=== PATIENT | female | born 1980 | race Caucasian/White ===

== ENCOUNTER 2016-09-29 11:48 | Emergency (ER) | payer SELFPAY ==
[~2016-09-29] VITALS: Ht 170.2 cm; Wt 90.0 kg
[2016-09-29 11:51] VITALS: BP 150/82
[2016-09-29] MEDS ORDERED: HYDROcodone/APAP 10/325 MG TABLET PO ONE (12:30)
[2016-09-29] MEDS ORDERED: HYDROcodone/APAP 10/325 MG TABLET ONE (12:56)
== END 2016-09-29 13:29 | disposition home or self-care (01) ==
LOC: ED 13:10
DX: G89.11 Acute pain due to trauma (principal); F11.23 Opioid dependence with withdrawal
CPT/HCPCS: 72220; 99284

== ENCOUNTER 2019-03-04 17:09 | Outpatient (CLI) | payer MEDICAID ==
[~2019-03-04] VITALS: Ht 170.2 cm; Wt 72.7 kg
[~2019-03-04 17:09] MED LIST: ALPR1TAB2 PO; METHADONE
[2019-03-04 17:44] VITALS: BP 154/97
[2019-03-04 17:58] LABS: AMPHETAMINE SCREEN, URINE Negative (Negative); BARBITURATE SCREEN, URINE Negative (Negative); BENZODIAZEPINE SCREEN, URINE Negative (Negative); CANNABINOID SCREEN, URINE Positive (Negative); COCAINE SCREEN, URINE Negative (Negative); METHADONE SCREEN, URINE Negative (Negative); OPIATE SCREEN, URINE Negative (Negative)
[2019-03-04 18:03] LABS: MICROSCOPIC INDICATED
[2019-03-04 18:25] LABS: ALANINE AMINOTRANSFERASE 20 U/L (12-78); ALBUMIN 2.4 g/dL (3.4-5.0); ANION GAP 6 mmol/L (5-15); CALCIUM 9.1 mg/dL (8.5-10.1); CHLORIDE 109 mmol/L (98-107); CREATININE 0.72 mg/dL (0.55-1.02)
[2019-03-04 18:27] LABS: ALKALINE PHOSPHATASE 151 U/L (45-117); BILIRUBIN,TOTAL 0.2 mg/dL (0.2-1.0); TOTAL PROTEIN 6.4 g/dL (6.4-8.2)
[2019-03-04 18:49] LABS: BASOPHILS # (AUTO) 0.02 x10^3/uL (0-0.1); BASOPHILS % (AUTO) 0 % (0-1); EOSINOPHILS # (AUTO) 0.17 x10^3/uL (0-0.4); EOSINOPHILS % (AUTO) 1 % (1-7); LYMPHOCYTES # (AUTO) 2.27 x10^3/uL (1-3.4); LYMPHOCYTES % (AUTO) 19 % (22-44); MD NO; MEAN CORPUSCULAR HEMOGLOBIN 28.8 pg (27.0-34.8); MEAN CORPUSCULAR HGB CONC 32.9 g/dL (32.4-35.8); MEAN CORPUSCULAR VOLUME 87.4 fL (80-100); MEAN PLATELET VOLUME 9.5 fL (7.4-10.4); MONOCYTES # (AUTO) 0.53 x10^3/uL (0.2-0.8); MONOCYTES % (AUTO) 5 % (2-9); NEUTROPHILS # (AUTO) 8.76 x10^3/uL (1.8-6.8); NEUTROPHILS % (AUTO) 75 % (42-75); PLATELET COUNT 224 x10^3/uL (130-400); RED BLOOD COUNT 4.07 x10^6/uL (3.82-5.3)
== END 2019-03-04 20:00 | disposition home or self-care (01) ==
LOC: LDOP 17:09
PROVIDERS: ATTEND Obstetrics & Gynecology
DX: O26.893 Other specified pregnancy related conditions, third trimester (principal); Z3A.33 33 weeks gestation of pregnancy
CPT/HCPCS: 36415; 59025; 76805; 80053; 80307; 81001; 84550; 85025; 86592; 86762; 86803; 86850; 86900; 87086; 87340; 87389; 87806; 99201; G0463; G0475

== ENCOUNTER 2019-03-10 20:02 | Inpatient (IN) | payer MEDICAID ==
[~2019-03-10] VITALS: Ht 170.2 cm; Wt 87.5 kg
[2019-03-10 20:53] LABS: MICROSCOPIC INDICATED
[2019-03-10 21:02] LABS: AMPHETAMINE SCREEN, URINE Positive (Negative); BARBITURATE SCREEN, URINE Negative (Negative); BENZODIAZEPINE SCREEN, URINE Negative (Negative); CANNABINOID SCREEN, URINE Positive (Negative); COCAINE SCREEN, URINE Negative (Negative); METHADONE SCREEN, URINE Negative (Negative); OPIATE SCREEN, URINE Negative (Negative)
[2019-03-10] MEDS ORDERED: BETAMETHASONE 6 MG/ML, 5ML IM ONE ×2 (21:20→21:30)
[2019-03-11 07:35] VITALS: BP 135/81
[2019-03-11] MEDS ORDERED: ACETAMINOPHEN 325 MG TABLET ONE (07:43)
[2019-03-11] MEDS: ACETAMINOPHEN 325 MG TABLET PO PRN (07:46)
[2019-03-11] MEDS ORDERED: MAGNESIUM SULFATE PMX 4GM/100M 100 ML ONE (08:02)
[2019-03-11 19:41] VITALS: BP 142/81
[2019-03-11] MEDS ORDERED: BETAMETHASONE 6 MG/ML, 5ML IM ONE (21:30)
[2019-03-12] MEDS ORDERED: ACETAMINOPHEN 325 MG TABLET ONE (13:51)
[2019-03-12] MEDS ORDERED: BETAMETHASONE 6 MG/ML, 5ML IM ONE (14:00)
[2019-03-12] MEDS: ACETAMINOPHEN 325 MG TABLET PO PRN (14:04)
[2019-03-12] MEDS ORDERED: PREN1TAB10 PO (14:23)
[2019-03-12 14:52] LABS: AMPHETAMINE SCREEN, URINE Positive (Negative); BARBITURATE SCREEN, URINE Negative (Negative); BENZODIAZEPINE SCREEN, URINE Negative (Negative); CANNABINOID SCREEN, URINE Negative (Negative); COCAINE SCREEN, URINE Negative (Negative); METHADONE SCREEN, URINE Negative (Negative); OPIATE SCREEN, URINE Negative (Negative)
== END 2019-03-12 14:30 | disposition home or self-care (01) | DRG 833 ==
LOC: LDOP 20:02 → LDIP 21:33
PROVIDERS: ADMIT Obstetrics & Gynecology; ATTEND Obstetrics & Gynecology
DX: O41.03X0 Oligohydramnios, third trimester, not applicable or unspecified (principal); Z3A.34 34 weeks gestation of pregnancy; Z88.6 Allergy status to analgesic agent; M79.7 Fibromyalgia; O99.343 Other mental disorders complicating pregnancy, third trimester; F32.9 Major depressive disorder, single episode, unspecified; Z59.0 Homelessness
CPT/HCPCS: 76815; 80307; 81001; 84112; 87081; 87086; G0378; J0702

== ENCOUNTER 2019-03-16 00:10 | Inpatient (IN) | payer MEDICAID ==
[~2019-03-16] VITALS: Ht 165.1 cm; Wt 86.0 kg
[~2019-03-16 00:10] MED LIST changes: +PREN1TAB10 PO
[2019-03-16] MEDS ORDERED: LACTATED RINGERS 1,000 ML IVBOLUS ONE (00:30)
[2019-03-16] MEDS ORDERED: OXYTOCIN 30U/ 0.9% NaCL 500ML 500 ML ONE (01:34)
[2019-03-16] MEDS ORDERED: NEWBORN KIT ONE (01:34)
[2019-03-16] MEDS ORDERED: D5%-LACTATED RINGERS 1,000 ML IV SCH (01:35)
[2019-03-16] MEDS ORDERED: LACTATED RINGERS 1,000 ML IV SCH ×2 (01:35→02:19)
[2019-03-16] MEDS ORDERED: OXYTOCIN 30U/ 0.9% NaCL 500ML 500 ML IV ONE (01:35)
[2019-03-16] MEDS ORDERED: FENTANYL PF 100 MCG/2ML ONE ×2 (01:35→02:47)
[2019-03-16] MEDS: FENTANYL PF 100 MCG/2ML IVPush PRN ×2 (01:44→02:50)
[2019-03-16] MEDS ORDERED: FENTANYL/BUPIV./NS/PF 250 ML EPIDCONT SCH ×2 (01:46→02:19)
[2019-03-16 01:49] LABS: MICROSCOPIC MANUAL
[2019-03-16 01:56] LABS: MEAN CORPUSCULAR HEMOGLOBIN 28.6 pg (27.0-34.8); MEAN CORPUSCULAR HGB CONC 32.9 g/dL (32.4-35.8); MEAN CORPUSCULAR VOLUME 86.9 fL (80-100); MEAN PLATELET VOLUME 9.3 fL (7.4-10.4); PLATELET COUNT 228 x10^3/uL (130-400); RED BLOOD COUNT 4.35 x10^6/uL (3.82-5.3); RED CELL DISTRIBUTION WIDTH 12.4 % (9.6-15.2)
[2019-03-16] MEDS ORDERED: FENTANYL PF 100 MCG/2ML IV PRN (02:00)
[2019-03-16] MEDS ORDERED: PENICILLIN GK 5,000,000 UNITS in DEXTROSE 5% 100 ML IVPB ONE (02:00)
[2019-03-16] MEDS ORDERED: TERBUTALINE 1 MG/ML, 1ML SQ PRN (02:00)
[2019-03-16] MEDS ORDERED: PENICILLIN GK 2,500,000 UNITS in DEXTROSE 5% 100 ML IVPB SCH (02:00)
[2019-03-16] MEDS ORDERED: TERBUTALINE 1 MG/ML, 1ML IVPush PRN (02:00)
[2019-03-16] MEDS ORDERED: FENTANYL/BUPIV./NS/PF 250 ML EPIDCONT ONE (02:07)
[2019-03-16] MEDS ORDERED: NALOXONE 0.4 MG/ML, 1ML IVPush PRN (02:30)
[2019-03-16] MEDS ORDERED: EPHEDRINE 50 MG/ML, 1ML IVPush PRN (02:30)
[2019-03-16] MEDS ORDERED: LACTATED RINGERS 1,000 ML IVBOLUS PRN (02:30)
[2019-03-16 02:46] LABS: BASOPHILS # (AUTO) 0.03 x10^3/uL (0-0.1); BASOPHILS % (AUTO) 0 % (0-1); EOSINOPHILS # (AUTO) 0.06 x10^3/uL (0-0.4); EOSINOPHILS % (AUTO) 0 % (1-7); LYMPHOCYTES # (AUTO) 2.78 x10^3/uL (1-3.4); LYMPHOCYTES % (AUTO) 13 % (22-44); MD SCAN; MONOCYTES # (AUTO) 0.74 x10^3/uL (0.2-0.8); MONOCYTES % (AUTO) 4 % (2-9); NEUTROPHILS # (AUTO) 17.24 x10^3/uL (1.8-6.8); NEUTROPHILS % (AUTO) 83 % (42-75)
[2019-03-16] MEDS ORDERED: IBUPROFEN 600 MG TABLET ONE (03:16)
[2019-03-16] MEDS: OXYTOCIN 30U/ 0.9% NaCL 500ML 500 ML IV SCH ×3 (03:22→23:22)
[2019-03-16] MEDS ORDERED: ACETAMINOPHEN 325 MG TABLET PO PRN (03:30)
[2019-03-16] MEDS ORDERED: MISOPROSTOL 200 MCG TABLET PO PRN (03:30)
[2019-03-16] MEDS ORDERED: ONDANSETRON 2MG/ML, 2ML IV PRN (03:30)
[2019-03-16] MEDS ORDERED: SIMETHICONE 80 MG CHEW TAB PO PRN (03:30)
[2019-03-16] MEDS ORDERED: MAGNESIUM HYDROXIDE 8%, 30ML UDC PO PRN (03:30)
[2019-03-16] MEDS: IBUPROFEN 600 MG TABLET PO PRN ×3 (03:30→17:07)
[2019-03-16] MEDS ORDERED: OXYcodone/APAP 5/325MG TABLET PO PRN (03:30)
[2019-03-16 03:56] LABS: AMPHETAMINE SCREEN, URINE Positive (Negative); BARBITURATE SCREEN, URINE Negative (Negative); BENZODIAZEPINE SCREEN, URINE Negative (Negative); CANNABINOID SCREEN, URINE Positive (Negative); COCAINE SCREEN, URINE Negative (Negative); METHADONE SCREEN, URINE Negative (Negative); OPIATE SCREEN, URINE Negative (Negative)
[2019-03-16 05:30] VITALS: BP 148/88
[2019-03-16 07:05] VITALS: BP 141/84
[2019-03-16] MEDS: DOCUSATE 100 MG CAPSULE PO PRN (09:13)
[2019-03-16] MEDS: PRENATAL VIT/IRON/FA 1 EACH TABLET PO SCH (09:13)
[2019-03-16 11:04] LABS: MEAN CORPUSCULAR HEMOGLOBIN 28.3 pg (27.0-34.8); MEAN CORPUSCULAR HGB CONC 32.8 g/dL (32.4-35.8); MEAN CORPUSCULAR VOLUME 86.3 fL (80-100); MEAN PLATELET VOLUME 8.9 fL (7.4-10.4); PLATELET COUNT 224 x10^3/uL (130-400); RED CELL DISTRIBUTION WIDTH 12.7 % (9.6-15.2)
[2019-03-16 11:20] LABS: BASOPHILS # (AUTO) 0.12 x10^3/uL (0-0.1); BASOPHILS % (AUTO) 1 % (0-1); EOSINOPHILS % (AUTO) 0 % (1-7); LYMPHOCYTES # (AUTO) 2.46 x10^3/uL (1-3.4); LYMPHOCYTES % (AUTO) 11 % (22-44); MD SCAN; MONOCYTES # (AUTO) 1.05 x10^3/uL (0.2-0.8); MONOCYTES % (AUTO) 5 % (2-9); NEUTROPHILS # (AUTO) 18.49 x10^3/uL (1.8-6.8); NEUTROPHILS % (AUTO) 83 % (42-75)
[2019-03-16 12:25] VITALS: BP 139/92
[2019-03-16 16:30] VITALS: BP 143/94
[2019-03-16 20:00] VITALS: BP 130/70
[2019-03-17 00:15] VITALS: BP 133/78
[2019-03-17] MEDS: DOCUSATE 100 MG CAPSULE PO PRN ×2 (04:32→21:21)
[2019-03-17] MEDS: IBUPROFEN 600 MG TABLET PO PRN ×3 (04:32→21:21)
[2019-03-17 08:20] VITALS: BP 123/81
[2019-03-17] MEDS: PRENATAL VIT/IRON/FA 1 EACH TABLET PO SCH (09:00)
[2019-03-17] MEDS: OXYTOCIN 30U/ 0.9% NaCL 500ML 500 ML IV SCH ×2 (09:22→19:22)
[2019-03-17] MEDS: OXYcodone/APAP 5/325MG TABLET PO PRN ×2 (13:52→21:22)
[2019-03-17] MEDS: NICOTINE 7 MG/24 HR PATCH.TD24 TD SCH (15:10)
[2019-03-17 20:30] VITALS: BP 141/83
[2019-03-18] MEDS: OXYTOCIN 30U/ 0.9% NaCL 500ML 500 ML IV SCH ×2 (05:22→15:22)
[2019-03-18] MEDS: IBUPROFEN 600 MG TABLET PO PRN (06:35)
[2019-03-18] MEDS: OXYcodone/APAP 5/325MG TABLET PO PRN ×2 (08:35→15:22)
[2019-03-18 08:45] VITALS: BP 132/72
[2019-03-18] MEDS: PRENATAL VIT/IRON/FA 1 EACH TABLET PO SCH (09:00)
[2019-03-18] MEDS ORDERED: IBUP-1223 PO (11:56)
[2019-03-18] MEDS ORDERED: DIPH,PERTUSS(ACELL),TET VAC/PF NC IM-VACC ONE ×2 (12:53→13:00)
[2019-03-18] MEDS ORDERED: MEASLES,MUMPS&RUBELLA VACC/PF 0.5 ML SQ-VACC ONE ×2 (12:54→13:00)
[2019-03-18] MEDS: NICOTINE 7 MG/24 HR PATCH.TD24 TD SCH (17:00)
== END 2019-03-18 17:00 | disposition home or self-care (01) | DRG 806 ==
LOC: LDOP 00:10 → LDIP 01:36 → 2NW 04:44
PROVIDERS: ADMIT Obstetrics & Gynecology; ATTEND Obstetrics & Gynecology
PROC: 10E0XZZ Delivery of Products of Conception, External Approach (ICD-10-PCS; principal; 2019-03-16)
DX: O60.14X0 Preterm labor third trimester with preterm delivery third trimester, not applicable or unspecified (principal); O99.324 Drug use complicating childbirth; Z37.0 Single live birth; F12.90 Cannabis use, unspecified, uncomplicated; F15.90 Other stimulant use, unspecified, uncomplicated; F44.9 Dissociative and conversion disorder, unspecified; M79.7 Fibromyalgia; O43.193 Other malformation of placenta, third trimester; O77.0 Labor and delivery complicated by meconium in amniotic fluid; O99.344 Other mental disorders complicating childbirth; Z3A.35 35 weeks gestation of pregnancy; Z59.0 Homelessness; Z72.0 Tobacco use; Z88.6 Allergy status to analgesic agent
CPT/HCPCS: 36415; 80307; 85025; 86592; 86850; 86900; 87086; 90715; G0378; J2540; J3010

== ENCOUNTER 2020-01-19 08:39 | Emergency (ER) | payer SELFPAY ==
[~2020-01-19] VITALS: Ht 170.2 cm; Wt 73.0 kg
[~2020-01-19 08:39] MED LIST changes: +IBUP-1223 PO
[2020-01-19 08:41] VITALS: BP 121/68
--- NOTE | 2020-01-19 09:00 | NUR ---
dr goldberg at bedside for us, fetus seen, indeterminate age. oob to bathroom gait steady. as
--- NOTE | 2020-01-19 09:00 | NUR ---
ASSISTANT NURSE MANAGER: PT BROUGHT INTO ED R/T UNSURE OF HOW FAR ALONG SHE IS OR WHEN LMP WAS. DISCUSSED WITH DR MURPHY. PT EXAMINED, U/S. FETUS NOTED TO HAVE A SPINE AND MOVING. L&D NOTIFIED OB PHYSICAN PACKING ROOM INSPECTOR AND RECOMMEND FULL WORK UP. DISCUSSED SENDING PT TO L&D. PT TRANSPORTED VIA W/C.
--- NOTE | 2020-01-19 09:04 | NUR ---
pt transport to l and d. as
== END 2020-01-19 09:09 | disposition other institution (70) ==
LOC: ED 09:04
DX: O26.899 Other specified pregnancy related conditions, unspecified trimester (principal); O99.330 Smoking (tobacco) complicating pregnancy, unspecified trimester; M54.9 Dorsalgia, unspecified; R10.9 Unspecified abdominal pain; F17.200 Nicotine dependence, unspecified, uncomplicated; Z3A.00 Weeks of gestation of pregnancy not specified
CPT/HCPCS: 99284

== ENCOUNTER 2020-01-19 09:12 | Outpatient (CLI) | payer SELFPAY ==
[~2020-01-19] VITALS: Ht 170.2 cm; Wt 75.0 kg
[2020-01-19] MEDS ORDERED: FLU VACC QS2020-21(6MOS UP)/PF 60MCG/0.5 ML SYR IM ONE (10:00)
[2020-01-19 10:13] LABS: MEAN CORPUSCULAR HEMOGLOBIN 28.7 pg (27.0-34.8); MEAN PLATELET VOLUME 8.7 fL (7.4-10.4); PLATELET COUNT 194 x10^3/uL (130-400); RED BLOOD COUNT 3.89 x10^6/uL (3.82-5.3); RED CELL DISTRIBUTION WIDTH 13.3 % (9.6-15.2)
[2020-01-19 10:43] LABS: AMPHETAMINE SCREEN, URINE Negative (Negative); BARBITURATE SCREEN, URINE Negative (Negative); BENZODIAZEPINE SCREEN, URINE Negative (Negative); CANNABINOID SCREEN, URINE Negative (Negative); COCAINE SCREEN, URINE Negative (Negative); METHADONE SCREEN, URINE Negative (Negative); OPIATE SCREEN, URINE Negative (Negative)
== END 2020-01-19 11:02 | disposition home or self-care (01) ==
LOC: LDOP 09:12
PROVIDERS: ATTEND Obstetrics & Gynecology
DX: O09.92 Supervision of high risk pregnancy, unspecified, second trimester (principal); O41.02X0 Oligohydramnios, second trimester, not applicable or unspecified; O32.1XX0 Maternal care for breech presentation, not applicable or unspecified; O26.893 Other specified pregnancy related conditions, third trimester; R10.9 Unspecified abdominal pain; M54.5 Low back pain; Z3A.15 15 weeks gestation of pregnancy
CPT/HCPCS: 36415; 76801; 80307; 85027; 86592; 86762; 86850; 86900; 87340; 87806; 99211; G0463; G0475

== ENCOUNTER 2020-03-04 15:36 | Observation (INO) | payer MEDICAID, OTHER ==
[2020-03-03] MEDS: LACTATED RINGERS 1,000 ML IV SCH (19:00)
[2020-03-04 17:33] LABS: BASOPHILS % (AUTO) 0 % (0-1); EOSINOPHILS % (AUTO) 1 % (1-7); LYMPHOCYTES % (AUTO) 21 % (22-44); MEAN CORPUSCULAR HEMOGLOBIN 28.3 pg (27.0-34.8); MEAN CORPUSCULAR HGB CONC 32.8 g/dL (32.4-35.8); MEAN PLATELET VOLUME 8.9 fL (7.4-10.4); MONOCYTES % (AUTO) 5 % (2-9); NEUTROPHILS % (AUTO) 72 % (42-75); PLATELET COUNT 190 x10^3/uL (130-400); RED BLOOD COUNT 3.97 x10^6/uL (3.82-5.3); RED CELL DISTRIBUTION WIDTH 12.7 % (9.6-15.2)
[2020-03-04 17:35] LABS: MD NO
[2020-03-04] MEDS ORDERED: LACTATED RINGERS 1,000 ML IV SCH (18:30)
[2020-03-04] MEDS ORDERED: EPHEDRINE 50 MG/ML, 1ML IVPush PRN (18:30)
[2020-03-04] MEDS: LACTATED RINGERS 1,000 ML IV SCH (21:00)
== END 2020-03-05 09:49 | disposition home or self-care (01) ==
LOC: LDOP 15:36 → LDIP 18:01
PROVIDERS: ADMIT Obstetrics & Gynecology; ATTEND Obstetrics & Gynecology
DX: O09.522 Supervision of elderly multigravida, second trimester (principal); Z20.828 Contact with and (suspected) exposure to other viral communicable diseases; O99.322 Drug use complicating pregnancy, second trimester; F15.10 Other stimulant abuse, uncomplicated; O99.312 Alcohol use complicating pregnancy, second trimester; F10.10 Alcohol abuse, uncomplicated; O99.332 Smoking (tobacco) complicating pregnancy, second trimester; F17.200 Nicotine dependence, unspecified, uncomplicated; Z59.0 Homelessness; Z3A.21 21 weeks gestation of pregnancy
CPT/HCPCS: 36415; 85025; 86592; 86762; 86850; 86900; 87340; 87635; 87806; 96360; 96361; 99211; G0378; J7120; G0463; G0475

== ENCOUNTER 2020-06-05 18:20 | Observation (INO) | payer MEDICAID ==
[2020-06-05 19:23] LABS: BASOPHILS % (AUTO) 0 % (0-1); EOSINOPHILS % (AUTO) 1 % (1-7); LYMPHOCYTES % (AUTO) 16 % (22-44); MEAN CORPUSCULAR HGB CONC 33.3 g/dL (32.4-35.8); MEAN PLATELET VOLUME 9.2 fL (7.4-10.4); MONOCYTES % (AUTO) 5 % (2-9); NEUTROPHILS % (AUTO) 78 % (42-75); PLATELET COUNT 238 x10^3/uL (130-400); RED BLOOD COUNT 4.25 x10^6/uL (3.82-5.3); RED CELL DISTRIBUTION WIDTH 12.6 % (9.6-15.2)
[2020-06-05 19:24] LABS: ALANINE AMINOTRANSFERASE 19 U/L (12-78); ALBUMIN 2.4 g/dL (3.4-5.0); ANION GAP 9 mmol/L (5-15); CALCIUM 7.8 mg/dL (8.5-10.1); CHLORIDE 108 mmol/L (98-107); CREATININE 0.78 mg/dL (0.55-1.02)
[2020-06-05 19:26] LABS: ALKALINE PHOSPHATASE 118 U/L (45-117); BILIRUBIN,TOTAL 0.2 mg/dL (0.2-1.0); TOTAL PROTEIN 6.5 g/dL (6.4-8.2)
[2020-06-05 19:28] LABS: MD NO
[2020-06-05] MEDS ORDERED: LACTATED RINGERS 500 ML IV SCH (22:00)
[2020-06-05] MEDS ORDERED: LACTATED RINGERS 1,000 ML IV SCH (22:00)
[2020-06-05 23:55] LABS: AMPHETAMINE SCREEN, URINE Negative (Negative); BARBITURATE SCREEN, URINE Negative (Negative); BENZODIAZEPINE SCREEN, URINE Negative (Negative); CANNABINOID SCREEN, URINE Positive (Negative); COCAINE SCREEN, URINE Negative (Negative); METHADONE SCREEN, URINE Negative (Negative); OPIATE SCREEN, URINE Negative (Negative)
[2020-06-06 00:11] LABS: MICROSCOPIC INDICATED
[2020-06-06] MEDS ORDERED: BETAMETHASONE 6 MG/ML, 5ML IM SCH (06:00)
== END 2020-06-06 12:07 | disposition home or self-care (01) ==
LOC: LDOP 18:20 → LDIP 21:51 → 2NE 21:56
PROVIDERS: ADMIT Obstetrics & Gynecology; ATTEND Obstetrics & Gynecology
DX: O26.893 Other specified pregnancy related conditions, third trimester (principal); R10.9 Unspecified abdominal pain; Z3A.33 33 weeks gestation of pregnancy
CPT/HCPCS: 36415; 59025; 76805; 76815; 76819; 80053; 80307; 81001; 84112; 84550; 85025; 87081; 87086; 96360; 96361; G0378; J7120

== ENCOUNTER 2020-07-05 18:23 | Outpatient (CLI) | payer MEDICAID ==
[2020-07-05 18:39] VITALS: BP 130/83
[2020-07-05 20:37] LABS: MICROSCOPIC INDICATED
[2020-07-05 20:45] LABS: AMPHETAMINE SCREEN, URINE Negative (Negative); BARBITURATE SCREEN, URINE Negative (Negative); BENZODIAZEPINE SCREEN, URINE Negative (Negative); CANNABINOID SCREEN, URINE Positive (Negative); COCAINE SCREEN, URINE Negative (Negative); METHADONE SCREEN, URINE Negative (Negative); OPIATE SCREEN, URINE Negative (Negative)
== END 2020-07-05 20:43 | disposition left against medical advice (07) ==
LOC: LDOP 18:23
PROVIDERS: ATTEND Obstetrics & Gynecology
DX: O09.93 Supervision of high risk pregnancy, unspecified, third trimester (principal); Z3A.39 39 weeks gestation of pregnancy
CPT/HCPCS: 59025; 76815; 80307; 81001; 84112; 87086